=== PATIENT | male | born 1985 ===

== ENCOUNTER 2018-02-15 03:54 | Emergency (ER) | payer BC ==
[2018-02-15 04:04] VITALS: BP 127/81; PULSE 78; RESP 16; TEMP 98.7; O2SAT 98
--- NOTE | 2018-02-15 04:07 | ED PDOC ---
HPI: Headache Time Seen by Provider: 02/15/18 04:05 Chief Complaint (Nursing): Headache Chief Complaint (Provider): Bodyaches History Per: Patient History/Exam Limitations: no limitations Onset/Duration Of Symptoms: Days (two) Current Symptoms Are (Timing): Still Present Severity: Mild Past Medical History Reviewed: Historical Data, Nursing Documentation, Vital Signs Vital Signs: Last Vital Signs Temp 98.7 F 02/15/18 04:02 Pulse 78 02/15/18 04:02 Resp 16 02/15/18 04:02 BP 127/81 02/15/18 04:02 Pulse Ox 98 02/15/18 04:02 - Family History Family History: States: Unknown Family Hx - Allergies Allergies/Adverse Reactions: Allergies Allergy/AdvReac Type Severity Reaction Status Date / Time No Known Allergies Allergy Verified 02/15/18 04:04 Review of Systems ROS Statement: Except As Marked, All Systems Reviewed And Found Negative Constitutional: Negative for: Fever, Chills, Sweats Eyes: Negative for: Pain ENT: Positive for: Throat Pain. Negative for: Ear Pain, Nose Pain, Mouth Pain, Mouth Swelling Cardiovascular: Negative for: Chest Pain Respiratory: Negative for: Cough, SOB with Exertion, Wheezing Gastrointestinal: Negative for: Nausea Musculoskeletal: Positive for: Other (generalized bodyaches) Physical Exam - Reviewed Nursing Documentation Reviewed: Yes Vital Signs Reviewed: Yes - Physical Exam Appears: Positive for: Non-toxic, No Acute Distress, Uncomfortable Head Exam: Positive for: ATRAUMATIC, NORMAL INSPECTION, NORMOCEPHALIC Skin: Positive for: Normal Color, Warm, Dry ENT: Positive for: Normal ENT Inspection, Pharynx Is (mildly erythematous without tonsillar edema or exudate; the uvula is midline and nonedematous) Neck: Positive for: Normal, Painless ROM, Supple. Negative for: Decreased ROM Cardiovascular/Chest: Positive for: Regular Rate, Rhythm, Bradycardia, Tachycardia. Negative for: Edema Respiratory: Positive for: Normal Breath Sounds. Negative for: Crackles, Rales , Rhonchi, Stridor, Wheezing Pulses-Carotid (L): 2+ Pulses-Carotid (R): 2+ Pulses-Radial (L): 2+ Pulses-Radial (R): 2+ Lymphatic: Positive for: Normal Exam - ECG O2 Sat by Pulse Oximetry: 98 Medical Decision Making Medical Decision Making: Pt indicates that he has not been feeling well for two days and alot of people at work and otherwise around him are ill; pt indicates that he has not taken any OTC remedies Disposition - Clinical Impression Clinical Impression: Headache - Patient ED Disposition Is Patient to be Admitted: No Counseled Patient/Family Regarding: Diagnosis, Need For Followup - Disposition Referrals: [facility] [Outside] Disposition: Routine/Home Disposition Time: 04:21 Condition: STABLE Additional Instructions: REST FLUIDS DAYQUIL [place]QUIL REST AND FLUIDS CHICKEN SOUP Instructions: Headache, Adult (DC), Tension Headache Forms: [facility] (Indian)
== END 2018-02-15 04:26 | disposition home or self-care (01) ==
LOC: H.ER 03:54
DX: R51 Headache (principal)